=== PATIENT | female | born 1990 | race Two or more races ===

== ENCOUNTER 2018-06-10 10:48 | Emergency (ER) | payer MEDICAID ==
[~2018-06-10] VITALS: Ht 162.6 cm; Wt 114.3 kg
--- NOTE | 2018-06-10 11:17 | NUR ---
BIB [id number] FOR +HI, HEARING VOICES TO HARM OTHERS, -SI & POSS GLASS ON BOTTOM OF LT FOOT PER PT. NO EVIDENCE OF TRAUMA TO FOOT. PT IS AOX3, AMB, BRADYCARDIC, RR EVEN AND UNLABORED ON RA. SKIN INTACT, NO ACUTE DISTRESS NOTED. READY FOR EVAL.
[2018-06-10 11:45] LABS: BASOPHILS % (AUTO) 0.4 % (0.0-2.0); EOSINOPHILS % (AUTO) 1.3 % (0.0-6.0); HEMATOCRIT 36 % (33-45); LYMPHOCYTES # (AUTO) 1.7 /CMM (0.8-4.8); LYMPHOCYTES % (AUTO) 14.1 % (20.0-44.0); MEAN CORPUSCULAR HGB CONC 34 g/dl (31.0-36.0); MEAN CORPUSCULAR VOLUME 77 fL (82-100); MONOCYTES # (AUTO) 0.8 /CMM (0.1-1.30); MONOCYTES % (AUTO) 6.3 % (2.0-12.0); NEUTROPHILS # (AUTO) 9.6 /CMM (1.8-8.9); NEUTROPHILS % (AUTO) 77.9 % (43.0-81.0); PLATELET COUNT (AUTO) 218 /CMM (150-450); RED BLOOD CELL COUNT(AUTO) 4.66 MIL/uL (4.0-5.2); WHITE BLOOD COUNT (AUTO) 12.3 K/uL (4.3-11.0)
[2018-06-10 11:58] LABS: POTASSIUM 3.5 mmol/L (3.5-5.1)
[2018-06-10 12:05] LABS: CALCIUM, SERUM 8.4 mg/dL (8.5-10.1); CARBON DIOXIDE 29 mmol/L (21-32); CHLORIDE 109 mmol/L (98-107); CREATININE 0.7 mg/dL (0.6-1.3); GLUCOSE 105 mg/dL (74-106); SODIUM SERUM 144 mmol/L (136-145); UREA NITROGEN, BLOOD 5 mg/dL (7-18)
[2018-06-10 12:09] LABS: ACETAMINOPHEN < 2 ug/ml (10-30); ALANINE AMINOTRANSFERASE 19 U/L (12-78); ALBUMIN 3.1 g/dL (3.4-5.0); ALCOHOL, BLOOD < 3 mg/dL (0-0); ALKALINE PHOSPHATASE 60 U/L (46-116); ASPARTATE AMINOTRANSFERASE 14 U/L (15-37); BILIRUBIN,DIRECT 0.1 mg/dL (0.0-0.2); BILIRUBIN,TOTAL 0.3 mg/dL (0.2-1.0); SALICYLATE 1.3 mg/dL (2.8-20.0); TOTAL PROTEIN, SERUM 6.5 g/dL (6.4-8.2)
[2018-06-10] MEDS ORDERED: LORAZEPAM 1 MG TABLET PO ONE (12:30)
[2018-06-10] MEDS ORDERED: OLANZAPINE 5 MG TABLET PO ONE (12:30)
--- NOTE | 2018-06-10 12:41 | NUR ---
PT REFUSING TO GIVE URINE AT THIS TIME. SOLE QUINTERO NOTIFIED
--- NOTE | 2018-06-10 12:41 | NUR ---
PER PA, HOLD MEDICATION DUE TO HEART RATE LESS THAN 60
--- NOTE | 2018-06-10 13:42 | NUR ---
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 PT STILL REFUSING TO PROVIDE URINE.
--- NOTE | 2018-06-10 16:57 | NUR ---
URINE COLLECTED AND SENT TO STAT LAB. PT ALSO REQUESTING XRAY
[2018-06-10 17:13] LABS: APPEARANCE,URINE Slightly Cloudy (CLEAR); BILIRUBIN,URINE Negative (NEGATIVE); BLOOD, URINE Negative Ery/uL (NEGATIVE); COLOR,URINE Yellow (YELLOW); KETONES,URINE Negative (NEGATIVE); LEUKOCYTE ESTERASE ,URINE Negative (NEGATIVE); NITRITE, URINE Negative (NEGATIVE); PROTEIN,URINE Negative (NEGATIVE); UGLUCOSE Negative (NEGATIVE); UROBILINOGEN,URINE 0.2 EU/dL (0.2)
--- NOTE | 2018-06-10 17:35 | NUR ---
XRAY AT BEDSIDE
--- NOTE | 2018-06-10 19:24 | NUR ---
CALLED [facility] FOR EVAL Addendum: 06/10/18 at 1924 by ADI CALLED [facility] FOR EVAL
[2018-06-10 19:36] VITALS: BP 118/66
[2018-06-10] MEDS ORDERED: OLANZAPINE 10 MG VIAL IM ONE ×2 (20:30→21:15)
--- NOTE | 2018-06-10 20:35 | NUR ---
SALES INSPECTOR [facility] AT BEDSIDE FOR EVAL.
--- NOTE | 2018-06-10 21:32 | NUR ---
Patient eloped from facility. ER MD notified.
--- NOTE | 2018-06-10 22:36 | NUR ---
CALLED [facility] [employer] SUPERINTENDENT #[phone]; ADV PT ELOPED APROX 1 HOUR AGO; DISPATCH ADV SENDING OFFICERS OUT
== END 2018-06-10 21:42 | disposition left against medical advice (07) ==
LOC: ER 10:50
DX: R45.850 Homicidal ideations (principal); R44.0 Auditory hallucinations; R22.31 Localized swelling, mass and lump, right upper limb; F31.9 Bipolar disorder, unspecified; F15.10 Other stimulant abuse, uncomplicated; F10.10 Alcohol abuse, uncomplicated; I10 Essential (primary) hypertension; F12.10 Cannabis abuse, uncomplicated; Y90.0 Blood alcohol level of less than 20 mg/100 ml; Z88.6 Allergy status to analgesic agent; Z88.5 Allergy status to narcotic agent
CPT/HCPCS: 36415; 73070; 73630; 80048; 80076; 80305; 80307; 80329; 81001; 84703; 85025; 99284; G0480; J3490; 81000-TC

== ENCOUNTER 2018-06-10 22:40 | Emergency (ER) | payer MEDICAID ==
[~2018-06-10] VITALS: Ht 162.6 cm; Wt 115.2 kg
--- NOTE | 2018-06-10 23:01 | NUR ---
SERA SANCHEZ, SEEN EARLIER TODAY FOR HI, HEARING VOICES, PT HAD ELOPED FR ER TODAY STATING "I WENT TO GET SOMETHING TO EAT". PT REQUEST THAT WE CONTACT HER GRANDMOTHER, ALSO NAME NATALIE, AT [phone] ([place] NUMBER). SENT TO ER 14, AWAITING EVAL.
--- NOTE | 2018-06-10 23:06 | NUR ---
S/W ART AT [facility] FOR BED 14
[2018-06-10] MEDS ORDERED: LORAZEPAM 1 MG TABLET ONE (23:25)
[2018-06-10] MEDS: LORAZEPAM 1 MG TABLET PO ONE (23:33)
--- NOTE | 2018-06-10 23:50 | NUR ---
MARINE STEAMFITTER ART AT BEDSIDE FOR EVAL.
[2018-06-11 01:13] VITALS: BP 126/67
--- NOTE | 2018-06-11 01:14 | NUR ---
pt accepted to [facility], by Dr Tinoco. # for report [phone].
--- NOTE | 2018-06-11 01:17 | NUR ---
Jay called for S transport. eta 20 min. trip [id number]
--- NOTE | 2018-06-11 01:20 | NUR ---
Report given to Alexis PEREZ for continuation of care.
--- NOTE | 2018-06-11 02:21 | NUR ---
krissy at bedside for transport.
== END 2018-06-11 02:22 ==
LOC: ER 22:42
DX: R45.850 Homicidal ideations (principal); F31.9 Bipolar disorder, unspecified; R45.851 Suicidal ideations; F19.10 Other psychoactive substance abuse, uncomplicated; J45.909 Unspecified asthma, uncomplicated; I10 Essential (primary) hypertension; F20.9 Schizophrenia, unspecified; R00.1 Bradycardia, unspecified; Z59.0 Homelessness; Z88.6 Allergy status to analgesic agent; Z88.5 Allergy status to narcotic agent